=== PATIENT | female | born 1985 ===

== ENCOUNTER 2023-11-19 12:48 | Outpatient (REF) | payer OTHER, SELFPAY | END 2023-11-19 12:49 | disposition home or self-care (01) | LOC: HO.SH 12:48 | PROVIDERS: Visit Provider Nurse Practitioner Family | DX: Z01.118 Encounter for examination of ears and hearing with other abnormal findings (principal); H93.13 Tinnitus, bilateral | CPT/HCPCS: 92557; 92567; 92625 ==